=== PATIENT | male | born 1975 | race American Indian/Alaskan Native ===

== ENCOUNTER 2019-11-11 16:26 | Emergency (ER) | payer OTHER ==
[2019-11-11 18:51] VITALS: BP 138/84
--- NOTE | 2019-11-11 18:52 | Emergency Department Report ---
Chief Complaint: Extremity Injury, Upper Stated Complaint: RT SHOULDER PAIN Time Seen by Provider: 11/11/19 18:50 - HPI History of Present Illness: right shoulder pain since sunday denies trauma not able to lift objects at work - ROS Review of Systems: ROS Negative - Exam Physical Exam: MS: TTP at bicipital groove MSE screening note: Focused history and physical exam performed. Due to findings the following was ordered: ED Disposition for MSE Condition: Stable
== END 2019-11-11 20:00 | disposition left against medical advice (07) ==
LOC: ED 16:26
DX: M25.511 Pain in right shoulder (principal)
CPT/HCPCS: 99281